=== PATIENT | female | born 1980 | race Caucasian/White ===

== ENCOUNTER → 2019-09-03 | Outpatient (REF) | payer OTHER ==
[2019-09-03 19:20] LABS: FREE T4 0.98 NG/DL (0.76-1.46); THYROID STIMULATING HORMONE 1.88 uIU/ML (0.358-3.740)
[2019-09-03 19:29] LABS: FOLLICLE STIMULATING HORMONE 2.2 mIU/mL; LUTEINIZING HORMONE 1.8 mIU/mL; PROGESTERONE 10.98 NG/ML
[2019-09-05 14:09] LABS: TESTOSTERONE FREE (DIRECT) 1.4 pg/mL (0.0-4.2)
== END ==
LOC: M LAB REF 16:51
PROVIDERS: ATTEND Obstetrics & Gynecology
DX: N92.1 Excessive and frequent menstruation with irregular cycle (principal); N94.10 Unspecified dyspareunia; N94.6 Dysmenorrhea, unspecified

== ENCOUNTER → 2019-09-30 | Outpatient (CLI) | payer OTHER ==
--- NOTE | 2019-09-30 17:12 | REP ---
Clinical: Amenorrhea. Technique: Transabdominal pelvic ultrasound followed by transvaginal examination for better evaluation of the endometrium and adnexa with color Doppler evaluation of the ovaries. Findings: Normal anteverted uterus measures 10.4 x 5.3 x 6.0 cm. Endometrial complex measures 8 mm thickness and small amount of endocervical fluid is identified. Evidence for prior section scar. No further uterine or endometrial abnormalities are identified. Bilateral ovaries are normal in vascularity without torsion. Left ovary measures 2.2 x 1.4 x 2.2 cm (RI 0.45). Right ovary measures 3.8 x 1.9 x 3.2 cm (RI 0.45) and includes 9 x 7 x 13 mm physiologic cyst. No pelvic fluid or adnexal mass lesion. Bladder is normal and measures 10.0 x 7.1 x 6.4 cm. Impression: Essentially normal pelvic ultrasound. Electronically Signed by Javid Barrett MD 09/30/2019 05:04 P
== END ==
LOC: M RAD 14:48 → EDUNIT# 15:00
PROVIDERS: ATTEND Obstetrics & Gynecology
DX: N92.1 Excessive and frequent menstruation with irregular cycle (principal)

== ENCOUNTER 2020-04-02 13:28 | Outpatient (RCR) | payer OTHER | END 2020-04-15 | LOC: M ST 13:28 | PROVIDERS: ATTEND Internal Medicine | DX: F98.5 Adult onset fluency disorder (principal) ==

== ENCOUNTER 2020-05-11 13:16 | Outpatient (RCR) | payer OTHER | END 2020-05-16 | LOC: M ST 13:16 | PROVIDERS: ATTEND Internal Medicine | DX: F98.5 Adult onset fluency disorder (principal) ==

== ENCOUNTER 2020-06-03 13:30 | Outpatient (RCR) | payer OTHER | END 2020-06-13 | LOC: M ST 13:30 | PROVIDERS: ATTEND Internal Medicine | DX: F98.5 Adult onset fluency disorder (principal) ==